=== PATIENT | male | born 1985 | race Hispanic/Latino ===

== ENCOUNTER 2017-11-20 19:14 | Emergency (ER) | payer MEDICAID ==
[~2017-11-20 19:14] MED LIST: ESOM40CA PO
[2017-11-20] MEDS ORDERED: OSELTAMIVIR PHOSPHATE 75 MG CAP ONE (20:02)
== END 2017-11-20 20:13 | disposition home or self-care (01) ==
LOC: EDH 19:14
DX: J10.1 Influenza due to other identified influenza virus with other respiratory manifestations (principal); F20.9 Schizophrenia, unspecified; Z87.891 Personal history of nicotine dependence

== ENCOUNTER 2019-08-07 15:48 | Emergency (ER) | payer MEDICAID ==
[2019-08-07] MEDS ORDERED: ORPHENADRINE CITRATE 30 MG/ML ML ONE (16:17)
[2019-08-07] MEDS ORDERED: NAPROXEN 500 MG TABLET ONE (16:17)
== END 2019-08-07 17:53 | disposition home or self-care (01) ==
LOC: EDH 15:48
DX: S16.1XXA Strain of muscle, fascia and tendon at neck level, initial encounter (principal); F41.9 Anxiety disorder, unspecified; F31.9 Bipolar disorder, unspecified; F20.9 Schizophrenia, unspecified; Z87.891 Personal history of nicotine dependence; V69.49XA Driver of heavy transport vehicle injured in collision with other motor vehicles in traffic accident, initial encounter; Y93.89 Activity, other specified; Y92.89 Other specified places as the place of occurrence of the external cause; Y99.8 Other external cause status
CPT/HCPCS: 96372; 99283; J2360

== ENCOUNTER 2022-04-13 16:06 | Emergency (ER) | payer MEDICAID ==
[~2022-04-13] VITALS: Ht 175.3 cm; Wt 99.8 kg
[2022-04-13] MEDS ORDERED: DICYCLOMINE HCL 10 MG/5 ML ML PO ONE (16:30)
[2022-04-13] MEDS ORDERED: MAG/ALUM/SIMETH 30 ML UDCUP PO ONE (16:30)
[2022-04-13] MEDS ORDERED: LIDOCAINE HCL 2% VISCOUS 15 ML UDCUP PO ONE (16:30)
[2022-04-13 17:40] LABS: BASOPHILS % (AUTO) 0.4 % (0.0-5.0); EOSINOPHILS % (AUTO) 2.2 % (0.0-8.0); HEMATOCRIT 44.7 % (42-54); LYMPHOCYTES % (AUTO) 32.7 % (21.0-51.0); MEAN CORPUSCULAR HEMOGLOBIN 30.5 pg (27.0-33.0); MEAN CORPUSCULAR HGB CONC 35.3 g/dL (32.0-36.0); MEAN CORPUSCULAR VOLUME 86.3 fL (79-99); MONOCYTES % (AUTO) 6.4 % (3.0-13.0); NEUTROPHILS % (AUTO) 57.9 % (40.0-77.0); PLATELET COUNT (AUTO) 280 K/uL (130-400); RED BLOOD CELL COUNT(AUTO) 5.18 MIL/uL (4.50-6.20); RED CELL DISTRIBUTION WIDTH 11.5 % (11.0-15.5); WHITE BLOOD COUNT (AUTO) 8.1 K/uL (4.8-10.8)
[2022-04-13 17:54] LABS: POTASSIUM 4.3 mmol/L (3.5-5.1)
[2022-04-13 18:00] LABS: ALBUMIN 4.3 g/dL (3.5-5.0); BILIRUBIN,TOTAL 0.4 mg/dL (0.2-1.0); TOTAL PROTEIN, SERUM 8.1 g/dL (6.0-8.3)
[2022-04-13 18:43] VITALS: BP 136/71
== END 2022-04-13 18:44 | disposition home or self-care (01) ==
LOC: EDH 16:06
DX: R07.89 Other chest pain (principal); R06.00 Dyspnea, unspecified; J02.9 Acute pharyngitis, unspecified; F31.9 Bipolar disorder, unspecified; F20.9 Schizophrenia, unspecified; Z90.49 Acquired absence of other specified parts of digestive tract; E66.9 Obesity, unspecified
CPT/HCPCS: 36415; 71045; 80053; 84484; 85025; 87804; 87880

== ENCOUNTER 2022-09-09 17:06 | Emergency (ER) | payer MEDICAID ==
[~2022-09-09] VITALS: Ht 175.3 cm; Wt 99.8 kg
[2022-09-09 17:20] VITALS: BP 137/79
[2022-09-09] MEDS ORDERED: ACETAMINOPHEN 500 MG TABLET PO ONE (19:00)
[2022-09-09] MEDS ORDERED: ACET-2247 PO (19:04)
[2022-09-09] MEDS ORDERED: AMOX1TAB16 PO (19:04)
[2022-09-09] MEDS ORDERED: TETANUS/DIPHTHERIA TOXOID [ADULT] 0.5 ML VIAL IM ONE (19:30)
== END 2022-09-09 19:28 | disposition home or self-care (01) ==
LOC: EDH 17:06
DX: S91.332A Puncture wound without foreign body, left foot, initial encounter (principal); F41.9 Anxiety disorder, unspecified; F20.9 Schizophrenia, unspecified; Z98.890 Other specified postprocedural states; Z90.49 Acquired absence of other specified parts of digestive tract; Z79.899 Other long term (current) drug therapy; W54.0XXA Bitten by dog, initial encounter; Y93.89 Activity, other specified; Y92.89 Other specified places as the place of occurrence of the external cause; Y99.8 Other external cause status
CPT/HCPCS: 73620; 90471; 90714

== ENCOUNTER 2023-01-20 17:18 | Emergency (ER) | payer MEDICAID ==
[~2023-01-20] VITALS: Ht 175.3 cm; Wt 99.8 kg
[~2023-01-20 17:18] MED LIST changes: +ACET-2247 PO; +AMOX1TAB16 PO
[2023-01-20] MEDS ORDERED: 0.9%NACL 1000ML 1,000 ML IV ONE (17:30)
[2023-01-20 18:04] LABS: APPEARANCE,URINE CLEAR (CLEAR); BILIRUBIN,URINE NEGATIVE (NEGATIVE); COLOR,URINE LIGHT-YELLOW (YELLOW); GLUCOSE, URINE (UA) NEGATIVE (NEGATIVE); KETONES,URINE NEGATIVE (NEGATIVE); LEUKOCYTE ESTERASE ,URINE NEGATIVE Leu/uL (NEGATIVE); NITRATE,URINE NEGATIVE (NEGATIVE); OCCULT BLOOD,URINE NEGATIVE (NEGATIVE); PH,URINE 5.5 (5.0-8.0); PROTEIN,URINE NEGATIVE (NEGATIVE); UROBILINOGEN,URINE 0.2 mg/dL (0.2-1.0)
[2023-01-20 18:06] LABS: BASOPHILS % (AUTO) 0.3 % (0.0-5.0); EOSINOPHILS % (AUTO) 1.8 % (0.0-8.0); LYMPHOCYTES % (AUTO) 42.3 % (21.0-51.0); MEAN CORPUSCULAR HGB CONC 35.2 g/dL (32.0-36.0); MEAN CORPUSCULAR VOLUME 88.1 fL (79-99); MONOCYTES % (AUTO) 6.8 % (3.0-13.0); NEUTROPHILS % (AUTO) 48.5 % (40.0-77.0); PLATELET COUNT (AUTO) 249 K/uL (130-400); RED BLOOD CELL COUNT(AUTO) 4.77 MIL/uL (4.50-6.20); RED CELL DISTRIBUTION WIDTH 11.9 % (11.0-15.5)
[2023-01-20 18:09] LABS: MUCUS,URINE RARE LPF (None Seen); RBC,URINE 0-1 /HPF (0-1)
[2023-01-20 18:10] LABS: AMPHET/METH SCREEN,URINE NEGATIVE (NEGATIVE); BARBITURATE SCREEN, URINE NEGATIVE (NEGATIVE); BENZODIAZEPINES SCREEN,URINE NEGATIVE (NEGATIVE); CANNABINOID SCREEN,URINE NEGATIVE (NEGATIVE); COCAINE SCREEN,URINE NEGATIVE (NEGATIVE); OPIATE SCREEN,URINE NEGATIVE (NEGATIVE); PHENCYCLIDINE SCREEN,URINE NEGATIVE (NEGATIVE)
[2023-01-20 18:17] LABS: POTASSIUM 3.7 mmol/L (3.5-5.1)
[2023-01-20 18:24] LABS: ALBUMIN 4.5 g/dL (3.5-5.0); MAGNESIUM 1.7 mg/dL (1.80-2.40); TOTAL PROTEIN, SERUM 7.8 g/dL (6.0-8.3)
[2023-01-20] MEDS ORDERED: MAGNESIUM 2GM PREMIX 50ML 50 ML IV SCH (19:30)
[2023-01-20] MEDS ORDERED: IBUP-2070 PO (19:43)
[2023-01-20 22:09] VITALS: BP 116/68
== END 2023-01-20 22:14 | disposition home or self-care (01) ==
LOC: EDH 17:18
DX: E83.42 Hypomagnesemia (principal); M94.0 Chondrocostal junction syndrome [Tietze]; E66.9 Obesity, unspecified; F20.9 Schizophrenia, unspecified; F31.9 Bipolar disorder, unspecified; Z90.49 Acquired absence of other specified parts of digestive tract; Z98.890 Other specified postprocedural states
CPT/HCPCS: 99285; 96365; 71045; 96361; 96366; 83735; 84484; 80053; 80305; 85025; 36415; 93005; 81001; J3475; J7030

== ENCOUNTER 2023-02-01 21:30 | Emergency (ER) | payer MEDICAID ==
[~2023-02-01] VITALS: Ht 175.3 cm; Wt 98.4 kg
[~2023-02-01 21:30] MED LIST changes: +IBUP-2070 PO
[2023-02-01] MEDS ORDERED: 0.9%NACL 1000ML 1,000 ML IV ONE (23:00)
[2023-02-01] MEDS ORDERED: ONDANSETRON 4MG INJ IVP ONE (23:00)
[2023-02-01] MEDS ORDERED: KETOROLAC 15MG/ML VIAL (15MG/ML) IV ONE (23:00)
[2023-02-01] MEDS ORDERED: PANTOPRAZOLE 40 MG/VIAL IVP ONE (23:00)
[2023-02-01 23:08] LABS: APPEARANCE,URINE TURBID (CLEAR); BILIRUBIN,URINE NEGATIVE (NEGATIVE); COLOR,URINE LIGHT-YELLOW (YELLOW); GLUCOSE, URINE (UA) NEGATIVE (NEGATIVE); KETONES,URINE NEGATIVE (NEGATIVE); LEUKOCYTE ESTERASE ,URINE NEGATIVE Leu/uL (NEGATIVE); NITRATE,URINE NEGATIVE (NEGATIVE); OCCULT BLOOD,URINE NEGATIVE (NEGATIVE); PH,URINE 7.5 (5.0-8.0); PROTEIN,URINE NEGATIVE (NEGATIVE); UROBILINOGEN,URINE 0.2 mg/dL (0.2-1.0)
[2023-02-01 23:12] LABS: BASOPHILS % (AUTO) 0.6 % (0.0-5.0); EOSINOPHILS % (AUTO) 2.2 % (0.0-8.0); HEMATOCRIT 42.3 % (42-54); LYMPHOCYTES % (AUTO) 35.9 % (21.0-51.0); MEAN CORPUSCULAR HEMOGLOBIN 30.4 pg (27.0-33.0); MEAN CORPUSCULAR HGB CONC 34.5 g/dL (32.0-36.0); MEAN CORPUSCULAR VOLUME 88.1 fL (79-99); MONOCYTES % (AUTO) 6.8 % (3.0-13.0); NEUTROPHILS % (AUTO) 54.4 % (40.0-77.0); PLATELET COUNT (AUTO) 251 K/uL (130-400); RED CELL DISTRIBUTION WIDTH 11.8 % (11.0-15.5); WHITE BLOOD COUNT (AUTO) 7.3 K/uL (4.8-10.8)
[2023-02-01 23:22] LABS: CARBON DIOXIDE 30 mmol/L (21-32); CHLORIDE 102 mmol/L (101-111); CREATININE 1.1 mg/dL (0.5-1.5); GLOMERULAR FILTR. RATE CALC 88 mL/min (>90); GLUCOSE,RANDOM 113 mg/dL (70-105); POTASSIUM 3.6 mmol/L (3.5-5.1); SODIUM SERUM 138 mmol/L (136-145); UREA NITROGEN, BLOOD 8 mg/dL (7-18)
[2023-02-01 23:26] LABS: ALANINE AMINOTRANSFERASE 48 U/L (12-78); ALBUMIN 4.2 g/dL (3.5-5.0); ASPARTATE AMINOTRANSFERASE 18 U/L (10-37); TOTAL PROTEIN, SERUM 7.5 g/dL (6.0-8.3)
[2023-02-01 23:30] LABS: LIPASE < 50 U/L (114-286)
[2023-02-02] MEDS ORDERED: PANT40TA54 PO (00:59)
[2023-02-02] MEDS ORDERED: ONDA-104 PO (00:59)
[2023-02-02] MEDS ORDERED: ACET-66 PO (00:59)
[2023-02-02] MEDS ORDERED: DICY20TA2 PO (00:59)
[2023-02-02] MEDS ORDERED: AMOX-426 PO (00:59)
[2023-02-02 01:00] VITALS: BP 121/82
== END 2023-02-02 01:05 | disposition home or self-care (01) ==
LOC: EDH 21:30
DX: A05.9 Bacterial foodborne intoxication, unspecified (principal); E66.9 Obesity, unspecified; F31.9 Bipolar disorder, unspecified; F41.9 Anxiety disorder, unspecified; Z90.49 Acquired absence of other specified parts of digestive tract; Z87.891 Personal history of nicotine dependence; Z79.899 Other long term (current) drug therapy
CPT/HCPCS: 99285; 74176; 96374; 96375; 96361; 80053; 83690; 85025; 81001; 36415; J7030; J2405; J1885; S0164; C9113

== ENCOUNTER 2023-08-08 19:17 | Emergency (ER) | payer MEDICAID ==
[~2023-08-08] VITALS: Ht 175.3 cm; Wt 102.1 kg
[~2023-08-08 19:17] MED LIST changes: +ACET-66 PO; +AMOX-426 PO; +DICY20TA2 PO; +ONDA-104 PO; +PANT40TA54 PO
[2023-08-08 20:48] LABS: COVID19 (SARS ANTIGEN RAPID) PRESUMPTIVE NEGATIVE (NEGATIVE); INFLUENZA TYPE A Negative For Type A (NEGATIVE); INFLUENZA TYPE B Negative For Type B (NEGATIVE)
[2023-08-08 21:42] VITALS: BP 128/68; PULSE 78; RESP 16; O2SAT 98
== END 2023-08-08 22:10 | disposition home or self-care (01) ==
LOC: EDH 19:17
DX: J02.8 Acute pharyngitis due to other specified organisms (principal); E66.9 Obesity, unspecified; Z79.899 Other long term (current) drug therapy; Z20.822 Contact with and (suspected) exposure to COVID-19; Z68.33 Body mass index [BMI] 33.0-33.9, adult
CPT/HCPCS: 87426; 87804

== ENCOUNTER 2025-03-04 12:26 | Emergency (ER) | payer MEDICAID ==
[~2025-03-04] VITALS: Ht 175.3 cm; Wt 99.8 kg
[2025-03-04] MEDS: diazePAM 2 MG TAB PO ONE (13:18)
[2025-03-04] MEDS: ketOROlac 15MG/ML VIAL (15MG/ML) IM ONE (13:18)
--- NOTE | 2025-03-04 14:06 | HMCIMG ---
LUMBAR SPINE RADIOGRAPHS - 2-3 VIEWS INDICATION: Back pain COMPARISON: None FINDINGS: AP, lateral, and coned-down lateral views. Normal lordotic curvature of the lumbar spine is maintained. Five nonrib-bearing lumbar vertebral bodies are noted. No acute fracture or subluxation identified. Vertebral body heights are well-maintained. Disc spaces are well-preserved. Multilevel nominal anterior endplate osteophytic spurring. IMPRESSION: No fracture or subluxation identified.
[2025-03-04] MEDS ORDERED: NAPR-1196 PO (14:30)
--- NOTE | 2025-03-04 14:30 | ERN ---
ED Note History of Present Illness Stated Complaint: LOW BACK PAIN Chief Complaint: Low Back Pain/Injury Time Seen by MD: 12:36 Dictation: 39-year-old male presenting to the emergency department with right low back pain radiates to right leg history of similar episodes in the past worse with movement and flexing. No weakness or urinary retention Allergies: Coded Allergies: No Known Allergies (Unverified Allergy, Unknown, 04/16/17) No Known Drug Allergies (Unverified Allergy, Unknown, 06/10/19) Home Meds Active Scripts Ondansetron HCl (Ondansetron HCl) 4 Mg Tablet, 4 MG PO TID for 3 Days, #9 TAB Prov:STEPHAN YARBROUGH 02/02/23 Pantoprazole Sodium (Pantoprazole Sodium) 40 Mg Tablet.dr, 40 MG PO DAILY for 14 Days, #28 TAB Prov:STEPHAN YARBROUGH 02/02/23 Dicyclomine HCl (Bentyl) 20 Mg Tab, 20 MG PO BID for 5 Days, #10 TAB Prov:STEPHAN YARBROUGH 02/02/23 Amoxicillin/Potassium Clav (Augmentin 500-125 Tablet) 1 Each Tablet, 1 EACH PO TID for 10 Days, #30 TAB Prov:STEPHAN YARBROUGH 02/02/23 Acetaminophen (Acetaminophen) 500 Mg Tablet, 500 MG PO Q4PRN for 5 Days, #15 TAB Prov:STEPHAN YARBROUGH 02/02/23 Ibuprofen (Ibuprofen) 600 Mg Tablet, 600 MG PO Q6H PRN for PAIN for 30 Days, #60 TAB Prov:LATRICE SNIDER 01/20/23 Acetaminophen (Tylenol) 325 Mg Tablet, 650 MG PO Q4HPRN, #50 TAB Prov:EMMA SALINAS 09/09/22 Amoxicillin/Potassium Clav (Amox Tr-K Clv 875-125 mg Tab) 1 Each Tablet, 1 EACH PO BID for 10 Days, #20 TAB Prov:EMMA SALINAS 09/09/22 Reported Medications Esomeprazole Magnesium (Nexium) 40 Mg Capsule.dr, 40 MG PO DAILY, CAP 04/16/17 Past Medical History Past Medical History: Anxiety, Bipolar, Hypertension Additional Past Medical Hx: obese Surgical History: Cholecystectomy Surgical History Other: EAR Family History: Negative Social History: Negative, Lives with family Review of System Dictation Constitutional: Negative for fever,chills, and weight loss Eyes: Negative for injury, pain,redness, and discharge ENT: Negative for injury,pain or swelling Cardiovascular: Negative for chest pain, palpitations, and edema Respiratory: Negative for shortness of breath, cough, and wheezing, Abdomen/GI: Negative for abdominal pain, nausea, vomiting, diarrhea, and constipation Back: Negative for injury and pain : Negative for injury, bleeding and discharge MS/Extremity: Per HPI Skin: Negative for rash, and discoloration Neuro: Negative for headache, weakness, numbness, tingling, and seizure Psych: Negative for suicide ideation, homicidal ideation, and hallucinations Initial Vital Sign VS Vital Signs Date Time Temp Pulse Resp B/P (MAP) Pulse Ox O2 Delivery O2 Flow Rate FiO2 03/04/25 12:27 97.5 84 16 118/81 98 Room Air* 0 21 Physical Exam Dictation General: awake, alert, NAD Head/Face: Normocephalic, atraumatic Eyes: PERRL, EOMI, vision at baseline ENT: oral cavity clear, TMs clear, no signs of infection Neck: Trachea midline, supple, no nuchal rigidity Cardiovascular: RRR, normal S1/S2, No MRGs, no JVD Respiratory: CTAB, no respiratory distress, No rales or wheezes Abdomen: Soft, non-tender, non-distended, normal bowel sounds, no guarding or rebound. Skin: Warm, dry, normal turgor, no rash MS/Extremity: Pulses equal, no cyanosis, neurovascular intact, FROM Neuro: COAx4, GCS 15, strength 5/5, CN 2-12 intact, normal cerebellar exam, normal gait, Psych: Normal behavior, mood, and affect normal ED Course ED Course Orders Procedure Category Date Status Time Lumbar Spine 2-3vws RAD 03/04/25 Resulted 13:02 Diazepam 2 Mg Tab PHA 03/04/25 Complete (Valium 2 Mg Tab) 13:30 Ketorolac PHA 03/04/25 Complete Tromethamine 15mg/Ml 13:30 Current Medications Medications (Trade) Dose Ordered Sig/Dee Route PRN Reason Start Time Stop Time Status Last Admin Dose Admin Diazepam (VALium 2 mg Tab) 2 mg ONCE ONCE PO 03/04/25 13:30 03/04/25 13:31 DC 03/04/25 13:18 Ketorolac Tromethamine (toRADol) 15 mg ONCE ONCE IM 03/04/25 13:30 03/04/25 13:31 DC 03/04/25 13:18 Vital Signs Date Time Temp Pulse Resp B/P (MAP) Pulse Ox O2 Delivery O2 Flow Rate FiO2 03/04/25 12:28 97.5 84 16 118/81 98 0 03/04/25 12:27 97.5 84 16 118/81 98 Room Air* 0 21 Medical Decision Making MDM MDM: Differential diagnosis: Rationale: Tests considered and ordered secondary to shared decision making include: Previous outside records reviewed: Old ER visits. Risk of complication and/or morbidity or mortality of patient management: None Medications-Per medication reconciliation Need for hospitalization: Patient does not meet criteria for hospitalization. Need for emergency major/minor surgery: No There are no social concerns with this patient. Prescription drug management Prescriptions will include symptomatic care Patient's prior external medical records from other ER visits were reviewed by me as indicated. Prior testing and results from previous visits were reviewed. Prior tests were taken into account with medical decision making and resource utilization, independent historian/historians were used to obtain complete medical history. I independently interpreted the test that were performed, results were reviewed by me and considered findings on radiology if ordered. Medical management and examination interpretation discussions were had by me with other qualified healthcare professionals as indicated for the patient's care. 39-year-old male with right lumbar radiculopathy stable exam negative x-ray stable for discharge. DX & DISP Disposition: Discharge Departure Impression: Primary Impression: Lumbar radiculopathy, acute Condition: Stable Scripts Naproxen (Naproxen) 250 Mg Tablet 250 MG PO BID for 5 Days, #10 TAB Prov: RAMOS QURESHI MD 03/04/25 Referrals: An CHAPIN MD (PCP) RAMOS QURESHI MD March 04, 2025 14:30
[2025-03-04 14:33] VITALS: BP 121/85; PULSE 80; RESP 16; TEMP 97.5; O2SAT 98
== END 2025-03-04 14:35 | disposition home or self-care (01) ==
LOC: EDH 12:26
DX: M54.16 Radiculopathy, lumbar region (principal); F31.9 Bipolar disorder, unspecified; F41.9 Anxiety disorder, unspecified; I10 Essential (primary) hypertension; E66.9 Obesity, unspecified; Z90.49 Acquired absence of other specified parts of digestive tract; Z79.899 Other long term (current) drug therapy
CPT/HCPCS: 99283; 72100; 96372; J1885

== ENCOUNTER 2025-08-04 20:23 | Emergency (ER) | payer MEDICAID ==
[~2025-08-04] VITALS: Ht 175.3 cm; Wt 99.8 kg
[~2025-08-04 20:23] MED LIST changes: +IBUP-1492 PO; -IBUP-2070 PO; +NAPR-1196 PO
[2025-08-04 21:06] VITALS: BP 130/85; PULSE 75; RESP 16; TEMP 98.3; O2SAT 98
--- NOTE | 2025-08-04 21:24 | ERN ---
ED Note History of Present Illness Stated Complaint: ITCHING Chief Complaint: Skin Problem Time Seen by MD: 21:05 Dictation: Patient comes in with complaint of macular pruritic rash starting in the left torso. No vesicles. No fever. He slept in a hotel yesterday shirtless. He woke up with itching and rash in the left chest. He and I did the bed sheets and took pictures and noticed that the mattress was very dirty and covered in all sorts of stains. slept in the same bed and she states she is itchy as well although she does not have a rash. She is not being seen as a patient. He has environmental allergies. No difficulty breathing. No fever. No other symptoms. Allergies: Coded Allergies: No Known Allergies (Unverified Allergy, Unknown, 04/16/17) No Known Drug Allergies (Unverified Allergy, Unknown, 06/10/19) Home Meds Active Scripts Naproxen (Naproxen) 250 Mg Tablet, 250 MG PO BID for 5 Days, #10 TAB Prov:RAMOS QURESHI MD 03/04/25 Ondansetron HCl (Ondansetron HCl) 4 Mg Tablet, 4 MG PO TID for 3 Days, #9 TAB Prov:STEPHAN YARBROUGH 02/02/23 Pantoprazole Sodium (Pantoprazole Sodium) 40 Mg Tablet.dr, 40 MG PO DAILY for 14 Days, #28 TAB Prov:STEPHAN YARBROUGH 02/02/23 Dicyclomine HCl (Bentyl) 20 Mg Tab, 20 MG PO BID for 5 Days, #10 TAB Prov:STEPHAN YARBROUGH 02/02/23 Amoxicillin/Potassium Clav (Augmentin 500-125 Tablet) 1 Each Tablet, 1 EACH PO TID for 10 Days, #30 TAB Prov:STEPHAN YARBROUGH 02/02/23 Acetaminophen (Acetaminophen) 500 Mg Tablet, 500 MG PO Q4PRN for 5 Days, #15 TAB Prov:STEPHAN YARBROUGH 02/02/23 Ibuprofen (Ibuprofen) 600 Mg Tablet, 600 MG PO Q6H PRN for PAIN for 30 Days, #60 TAB Prov:LATRICE SNIDER 01/20/23 Acetaminophen (Tylenol) 325 Mg Tablet, 650 MG PO Q4HPRN, #50 TAB Prov:EMMA SALINAS RAJ 09/09/22 Amoxicillin/Potassium Clav (Amox Tr-K Clv 875-125 mg Tab) 1 Each Tablet, 1 EACH PO BID for 10 Days, #20 TAB Prov:EMMA SALINAS RAJ 09/09/22 Reported Medications Esomeprazole Magnesium (Nexium) 40 Mg Capsule.dr, 40 MG PO DAILY, CAP 04/16/17 Past Medical History Past Medical History: Anxiety, Bipolar, Hypertension Additional Past Medical Hx: obese Surgical History: Cholecystectomy, Other Surgical History Other: EAR Family History: Negative Social History: Negative, Lives with family Review of System Dictation Ten systems reviewed and negative except as noted in HPI Initial Vital Sign VS Vital Signs Date Time Temp Pulse Resp B/P (MAP) Pulse Ox O2 Delivery O2 Flow Rate FiO2 08/04/25 21:00 98.6 77 18 131/86 97 Room Air 08/04/25 21:06 0 21 Physical Exam Dictation GEN: non toxic, NAD HEENT: atrumatic, PERRL, EOMI, conjunctivae normal NECK: Soft supple nontender Heart RRR, no murmurs Chest: No deformity. On the left torso patient has a macular rash your. No vesicles. It is blanching. Some of it is pruritic. Not urticarial. no petechiae. Lungs: Lungs clear to auscultation Ab: Soft nondistended nontender Back: No midline step-offs. No gross deformity. No CVA tenderness : m/s: Moving all four extremities. No gross deformity Neuro: CN 2-12 intact. Moving all four extremities. Psych: Cooperative ED Course ED Course Orders Procedure Category Date Status Time Diphenhydramine Hcl PHA 08/04/25 Complete (Benadryl Cap) 21:30 Current Medications Medications (Trade) Dose Ordered Sig/Dee Route PRN Reason Start Time Stop Time Status Last Admin Dose Admin Diphenhydramine HCl (BENAdryl CAP) 50 mg ONCE ONCE PO 08/04/25 21:30 08/04/25 21:31 DC 08/04/25 21:34 Vital Signs Date Time Temp Pulse Resp B/P (MAP) Pulse Ox O2 Delivery O2 Flow Rate FiO2 08/04/25 21:06 98.2 75 16 130/85 98 Room Air* 0 21 08/04/25 21:00 98.6 77 18 131/86 97 Room Air Medical Decision Making MDM Think patient is having an irritant rash versus contact dermatitis or irritation. Non vesicular. Blanching. Recommended topical hydrocortisone and calamine lotion and Benadryl. is driving. Given Benadryl here. DX & DISP Disposition: Discharge Departure Impression: Primary Impression: Contact dermatitis Additional Impression: Allergic reaction Condition: Stable Additional Instructions: Topical hydrocortisone cream and Benadryl and calamine [id number] as needed for itch Benadryl 50 mg every 6 hours [id number] as needed for itch Return for any worsening symptoms, blistering, fever greater than 100.4, or any other concerns Referrals: An CHAPIN MD (PCP) WANDA CENTENO MD Aug 04, 2025 21:24
== END 2025-08-04 21:39 | disposition home or self-care (01) ==
LOC: EDH 20:23
DX: T78.49XA Other allergy, initial encounter (principal); F41.9 Anxiety disorder, unspecified; F31.9 Bipolar disorder, unspecified; I10 Essential (primary) hypertension; E66.9 Obesity, unspecified; Z79.899 Other long term (current) drug therapy; Z90.49 Acquired absence of other specified parts of digestive tract; X58.XXXA Exposure to other specified factors, initial encounter
CPT/HCPCS: 99282; Q0163